=== PATIENT | female | born 1995 | race Caucasian/White ===

== ENCOUNTER 2020-11-06 01:26 | Inpatient (IN) | payer BC ==
[2020-11-06] MEDS ORDERED: Lidocaine 1% 50 ML MDV INJECT PRN (01:50)
[2020-11-06] MEDS ORDERED: Sodium Chloride 0.9% 10 ML Syringe FLUSH PRN (01:50)
[2020-11-06] MEDS ORDERED: Ampicillin 2 GM in Sodium Chloride 0.9% 100 ML IV ONE (01:50)
[2020-11-06] MEDS ORDERED: Tranexamic Acid 1,000 MG in Sodium Chloride 0.9% 100 ML IV PRN (01:50)
[2020-11-06] MEDS ORDERED: Sodium Chloride 0.9% 10 ML SDV IV PRN (01:50)
[2020-11-06] MEDS ORDERED: Sodium Chloride 0.9% 2.5 ML Syringe FLUSH PRN (01:50)
[2020-11-06] MEDS ORDERED: Water For Irrigation,Sterile 1,000 ML Container IRR PRN (01:50)
[2020-11-06] MEDS ORDERED: Carboprost Tromethamine 250 MCG/1 ML Amp IM PRN (01:50)
[2020-11-06] MEDS ORDERED: Misoprostol 200 MCG Tab PO PRN (01:50)
[2020-11-06] MEDS ORDERED: Nalbuphine 10 MG/1 ML Vial IVPUSH PRN (01:50)
[2020-11-06] MEDS ORDERED: Methylergonovine 0.2 MG/1 ML Amp IM PRN (01:50)
[2020-11-06] MEDS ORDERED: Butorphanol 1 MG/ML SDV IVPUSH PRN (01:50)
[2020-11-06] MEDS ORDERED: Lactated Ringers 1,000 ML IV SCH (02:00)
[2020-11-06] MEDS ORDERED: Oxytocin/0.9 % Sodium Chloride 30 UNIT/500 ML BAG IV SCH (02:00)
[2020-11-06] MEDS ORDERED: Ibuprofen 400 MG Tab PO PRN (04:29)
[2020-11-06] MEDS ORDERED: Benzocaine/Menthol 20%-0.5% Spray 78 GM Cannister TOP PRN (04:29)
[2020-11-06] MEDS ORDERED: oxyCODONE 5 MG Tab PO PRN (04:29)
[2020-11-06] MEDS ORDERED: Acetaminophen 500 MG Tab PO PRN ×2 (04:29)
[2020-11-06] MEDS ORDERED: Witch Hazel Medicated Pads 40/Jar TOP PRN (04:29)
[2020-11-06] MEDS ORDERED: Bisacodyl 10 MG Supp RECTAL PRN (04:29)
[2020-11-06] MEDS ORDERED: Lanolin 100% Cream 7 GM Tube TOP PRN (04:29)
--- NOTE | 2020-11-06 04:36 | PCM.OPNOTE ---
- General Post-Op/Procedure Note Date of Surgery/Procedure: 11/06/20 Operative Procedure(s): /1st MLL repaired Findings: Viable female APGARs 8, 9 weight 3320 gm. Spontaneous delivery intact placenta with 3V cord Pre Op Diagnosis: 37/4 week IUP. Active labor/SROM. GBBS + Post-Op Diagnosis: Same Anesthesia Technique: Local Primary Surgeon: Naz Lizama EBL in mLs: 250 Complications: none known Condition: Good Free Text/Narrative:: Dictation [id number]
[2020-11-06] MEDS: Ibuprofen 800 MG Tab PO PRN ×2 (05:05→18:50)
[2020-11-06] MEDS: Docusate Sodium 100 MG Cap PO PRN (05:06)
--- NOTE | 2020-11-06 06:17 | OR ---
SURGEON: Naz Lizama M.D. DATE OF PROCEDURE: 11/06/2020 PREOPERATIVE DIAGNOSES: 1. Thirty-seven and 4-week intrauterine . 2. Active labor, spontaneous rupture of membranes. 3. Group beta streptococcus positive. POSTOPERATIVE DIAGNOSES: 1. Thirty-seven and 4-week intrauterine . 2. Active labor, spontaneous rupture of membranes. 3. Group beta streptococcus positive. PROCEDURE: Spontaneous vaginal delivery, first-degree midline laceration repaired. ANESTHESIA: Local. COMPLICATIONS: None known. FINDINGS: Viable female, score of 8 at 1 minute, 9 at 5 minutes. Weight of 3320 g. Spontaneous delivery, intact placenta, 3-vessel cord. DISPOSITION: to nursery, Mom in LDRP. 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 and leakage of fluid since approximately 6:30 a.m. On initial examination, she was found to be 4 cm, 80% effaced, minus 2 station. Therefore, she was admitted. Routine labs were drawn. IV hydration was initiated. COVID was negative. The patient continued to progress over the next 2 hours to complete, 100% effaced, +1 station, feeling the urge to push. Category 1 heart tones did receive a dose of ampicillin prophylaxis for group beta streptococcus positive status. The patient began pushing efforts, pushed readily over the next approximately an hour to a +3 station. I was called for delivery. Upon my arrival, patient was placed in modified dorsal lithotomy position, was prepped and draped in the usual aseptic manner. Continued with pushing efforts, was able to push and deliver 's head atraumatically spontaneously, followed by anterior shoulder, posterior shoulder, and remainder of the body without difficulty. The infant's oropharynx and nares were bulb suctioned. was handed off to her mother with attending nursing staff at her side. After a delay cord was clamped x2 and cut. Cord arterial, cord venous, cord blood sampling obtained. Light pressure was applied while the placenta was delivered spontaneously intact. Vigorous fundal uterine massage was then applied with 30 units of Pitocin delivered in 500 mL of IV fluid. Upon inspection of cervix, vaginal sidewall, and perineum, there was found to be a first-degree midline laceration along the perineum. This was repaired using 3-0 Vicryl in the usual fashion after prepping the region with approximately 6 mL of 1% lidocaine. There was also superficial right periurethral laceration, that region was prepped with 1% lidocaine and repaired using simple [id number] suture. Hemostasis appeared evident. The sponge, instrument, needle count was correct. The patient remained in LDRP, infant to nursery. GANESH / ADRIÁN /[id number]
--- NOTE | 2020-11-07 11:42 | PCM.PNPP ---
- General Info Date of Service: 11/07/20 Functional Status: Reports: Pain Controlled, Tolerating Diet, Ambulating, Urinating - Review of Systems General: Denies: Fever, Weakness, Fatigue Pulmonary: Denies: Shortness of Breath Cardiovascular: Denies: Chest Pain, Palpitations, Lightheadedness Gastrointestinal: Denies: Abdominal Pain, Nausea, Vomiting Genitourinary: Denies: Flank Pain Musculoskeletal: Reports: No Symptoms Skin: Reports: No Symptoms Neurological: Reports: No Symptoms Psychiatric: Reports: No Symptoms - General Info Date of Service: 11/07/20 - Patient Data Vital Signs - Most Recent: Last Vital Signs Temp 36.6 C 11/07/20 08:10 Pulse 84 11/07/20 08:10 Resp 15 11/07/20 08:10 BP 119/77 11/07/20 08:10 Pulse Ox 98 11/07/20 08:10 Weight - Most Recent: 87.997 kg I&O - Last 24 Hours: Intake & Output 11/06/20 11/07/20 11/07/20 22:59 06:59 14:59 Intake Total 2 Balance 2 Lab Results - Last 24 Hours: Laboratory Results - last 24 hr 11/06/20 11/07/20 Range/Units 04:50 05:46 Hgb 12.6 (12.0-16.0) g/dL Hct 37.8 (36.0-46.0) % Screen NEGATIVE (NEGATIVE) RhIG Candidate? YES Rhogam Indicated YES, BABY RH POS H Med Orders - Current: Current Medications Acetaminophen (Tylenol Extra Strength) 500 mg PO Q4H PRN PRN Reason: Pain Acetaminophen (Tylenol Extra Strength) 1,000 mg PO Q4H PRN PRN Reason: Pain Last Admin: 11/06/20 05:05 Dose: 1,000 mg Documented by: Benzocaine/Menthol (Dermoplast Pain Relief 20%-0.5% [place]) 78 gm TOP ASDIRECTED PRN PRN Reason: Perineal Comfort Measure Last Admin: 11/06/20 05:07 Dose: 1 canister Documented by: Bisacodyl (Dulcolax) 10 mg RECTAL ONETIME PRN PRN Reason: Constipation Butorphanol Tartrate (Stadol) 1 mg IVPUSH Q1H PRN PRN Reason: Pain Carboprost Tromethamine (Hemabate Ds) 250 mcg IM ASDIRECTED PRN PRN Reason: Post Hemorrhage Docusate Sodium (Colace) 100 mg PO BID PRN PRN Reason: Constipation Last Admin: 11/06/20 05:06 Dose: 100 mg Documented by: Emollient Ointment (Lansinoh Hpa) 0 gm TOP ASDIRECTED PRN PRN Reason: Sore Nipples Last Admin: 11/06/20 05:06 Dose: 7 gm Documented by: Oxytocin/Sodium Chloride (Oxytocin 30 Unit/500 Ml-Ns) 30 unit in 500 mls @ 999 mls/hr IV TITRATE [facility] Last Admin: 11/06/20 04:01 Dose: 999 mls/hr Documented by: Tranexamic Acid 1,000 mg/ (Sodium Chloride) 110 mls @ 660 mls/hr IV ONETIME PRN PRN Reason: Bleeding Lactated Ringer's (Ringers, Lactated) 1,000 mls @ 150 mls/hr IV ASDIRECTED [facility] Last Admin: 11/06/20 02:24 Dose: 150 mls/hr Documented by: Ibuprofen (Motrin) 400 mg PO Q4H PRN PRN Reason: Pain Ibuprofen (Motrin) 800 mg PO Q6H PRN PRN Reason: Pain Last Admin: 11/06/20 18:50 Dose: 800 mg Documented by: Lidocaine HCl (Xylocaine 1%) 50 ml INJECT ONETIME PRN PRN Reason: Laceration repair Last Admin: 11/06/20 04:16 Dose: 50 ml Documented by: Methylergonovine Maleate (Methergine) 0.2 mg IM ASDIRECTED PRN PRN Reason: Post Hemorrhage Misoprostol (Cytotec) 200 mcg PO ONETIME PRN PRN Reason: Post Hemorrhage Nalbuphine HCl (Nubain) 10 mg IVPUSH Q1H PRN PRN Reason: Pain (severe 7-10) Oxycodone HCl (Oxycodone) 5 mg PO Q2H PRN PRN Reason: Pain Sodium Chloride (Saline Flush) 10 ml FLUSH ASDIRECTED PRN PRN Reason: Keep Vein Open Sodium Chloride (Saline Flush) 2.5 ml FLUSH ASDIRECTED PRN PRN Reason: Keep Vein Open Sodium Chloride (Normal Saline) 10 ml IV ASDIRECTED PRN PRN Reason: IV Use Sterile Water (Sterile Water For Irrigation) 1,000 ml IRR ASDIRECTED PRN PRN Reason: delivery Chris Liu (Tucks) 1 pad TOP ASDIRECTED PRN PRN Reason: comfort care Last Admin: 11/06/20 05:06 Dose: 1 tub Documented by: Discontinued Medications Ampicillin Sodium 2 gm/ Sodium (Chloride) 100 mls @ 200 mls/hr IV ONETIME ONE Stop: 11/06/20 02:19 Last Admin: 11/06/20 02:23 Dose: 200 mls/hr Documented by: - Interaction Support Person: - Recovery Exam Fundal Tone: Firm Fundal Level: At Umbilicus Fundal Placement: Midline Lochia Amount: Scant Lochia Color: Rubra/Red Perineum Description: Other (see below) Other Perinuem Description: 1st degree laceration repaired Bladder Status: Voiding - Exam General: Alert, Oriented Lungs: Normal Respiratory Effort Cardiovascular: Regular Rate, Regular Rhythm GI/Abdominal Exam: Normal Bowel Sounds, Soft Extremities: Pedal Edema (trace). No: [place]'s Sign Skin: Warm, Dry, Intact Neurological: No New Focal Deficit Psy/Mental Status: Alert, Normal Affect, Normal Mood - Problem List & Annotations (1) Vaginal delivery SNOMED Code(s): 081869849 Code(s): O80 - ENCOUNTER FOR FULL-TERM UNCOMPLICATED DELIVERY Status: Acute Current Visit: Yes - Problem List Review Problem List Initiated/Reviewed/Updated: Yes - Assessment Assessment:: PPD 1 status post /1st MLL repaired - Plan Plan:: Continue cares. Doing well overall, will be able to be discharge once 48 hours post delivery due to not receiving complete antibiotic prophylaxis for GBBS + status.
--- NOTE | 2020-11-08 08:34 | PCM.PNPP ---
- General Info Date of Service: 11/08/20 Functional Status: Reports: Pain Controlled, Tolerating Diet, Ambulating, Urinating - Review of Systems General: Reports: No Symptoms HEENT: Reports: No Symptoms Pulmonary: Reports: No Symptoms Cardiovascular: Reports: No Symptoms Gastrointestinal: Reports: No Symptoms Genitourinary: Reports: No Symptoms Musculoskeletal: Reports: No Symptoms Skin: Reports: No Symptoms Neurological: Reports: No Symptoms Psychiatric: Reports: No Symptoms - Patient Data Vital Signs - Most Recent: Last Vital Signs Temp 36.6 C 11/08/20 07:52 Pulse 79 11/08/20 08:11 Resp 16 11/08/20 08:11 BP 119/68 11/08/20 08:11 Pulse Ox 96 11/08/20 08:11 Weight - Most Recent: 87.997 kg Med Orders - Current: Current Medications Acetaminophen (Tylenol Extra Strength) 500 mg PO Q4H PRN PRN Reason: Pain Acetaminophen (Tylenol Extra Strength) 1,000 mg PO Q4H PRN PRN Reason: Pain Last Admin: 11/06/20 05:05 Dose: 1,000 mg Documented by: Benzocaine/Menthol (Dermoplast Pain Relief 20%-0.5% [place]) 78 gm TOP ASDIRECTED PRN PRN Reason: Perineal Comfort Measure Last Admin: 11/06/20 05:07 Dose: 1 canister Documented by: Bisacodyl (Dulcolax) 10 mg RECTAL ONETIME PRN PRN Reason: Constipation Butorphanol Tartrate (Stadol) 1 mg IVPUSH Q1H PRN PRN Reason: Pain Carboprost Tromethamine (Hemabate Ds) 250 mcg IM ASDIRECTED PRN PRN Reason: Post Hemorrhage Docusate Sodium (Colace) 100 mg PO BID PRN PRN Reason: Constipation Last Admin: 11/06/20 05:06 Dose: 100 mg Documented by: Emollient Ointment (Lansinoh Hpa) 0 gm TOP ASDIRECTED PRN PRN Reason: Sore Nipples Last Admin: 11/06/20 05:06 Dose: 7 gm Documented by: Oxytocin/Sodium Chloride (Oxytocin 30 Unit/500 Ml-Ns) 30 unit in 500 mls @ 999 mls/hr IV TITRATE [facility] Last Admin: 11/06/20 04:01 Dose: 999 mls/hr Documented by: Tranexamic Acid 1,000 mg/ (Sodium Chloride) 110 mls @ 660 mls/hr IV ONETIME PRN PRN Reason: Bleeding Lactated Ringer's (Ringers, Lactated) 1,000 mls @ 150 mls/hr IV ASDIRECTED [facility] Last Admin: 11/06/20 02:24 Dose: 150 mls/hr Documented by: Ibuprofen (Motrin) 400 mg PO Q4H PRN PRN Reason: Pain Ibuprofen (Motrin) 800 mg PO Q6H PRN PRN Reason: Pain Last Admin: 11/06/20 18:50 Dose: 800 mg Documented by: Lidocaine HCl (Xylocaine 1%) 50 ml INJECT ONETIME PRN PRN Reason: Laceration repair Last Admin: 11/06/20 04:16 Dose: 50 ml Documented by: Methylergonovine Maleate (Methergine) 0.2 mg IM ASDIRECTED PRN PRN Reason: Post Hemorrhage Misoprostol (Cytotec) 200 mcg PO ONETIME PRN PRN Reason: Post Hemorrhage Nalbuphine HCl (Nubain) 10 mg IVPUSH Q1H PRN PRN Reason: Pain (severe 7-10) Oxycodone HCl (Oxycodone) 5 mg PO Q2H PRN PRN Reason: Pain Sodium Chloride (Saline Flush) 10 ml FLUSH ASDIRECTED PRN PRN Reason: Keep Vein Open Sodium Chloride (Saline Flush) 2.5 ml FLUSH ASDIRECTED PRN PRN Reason: Keep Vein Open Sodium Chloride (Normal Saline) 10 ml IV ASDIRECTED PRN PRN Reason: IV Use Sterile Water (Sterile Water For Irrigation) 1,000 ml IRR ASDIRECTED PRN PRN Reason: delivery Chris Liu (Tucks) 1 pad TOP ASDIRECTED PRN PRN Reason: comfort care Last Admin: 11/06/20 05:06 Dose: 1 tub Documented by: Discontinued Medications Ampicillin Sodium 2 gm/ Sodium (Chloride) 100 mls @ 200 mls/hr IV ONETIME ONE Stop: 11/06/20 02:19 Last Admin: 11/06/20 02:23 Dose: 200 mls/hr Documented by: - Infant Interaction Infant Disposition, : [place] in Room with Family Infant Interaction: Holding Infant Infant Feeding: Attempted ; Nursed Fair/Poor Support Person: - Recovery Exam Fundal Tone: Firm Fundal Level: At Umbilicus Fundal Placement: Midline Lochia Amount: Scant Lochia Color: Rubra/Red Perineum Description: Other (see below) Other Perinuem Description: 1st degree laceration repaired Bladder Status: Voiding - Exam General: Alert, Oriented Neck: Supple Lungs: Normal Respiratory Effort GI/Abdominal Exam: Soft, Non-Tender, No Organomegaly, No Abnormal Bruit, No Mass Extremities: Non-Tender, No Pedal Edema Skin: Warm Neurological: No New Focal Deficit Psy/Mental Status: Alert, Normal Affect, Normal Mood - Problem List & Annotations (1) Vaginal delivery SNOMED Code(s): 208305710 Code(s): O80 - ENCOUNTER FOR FULL-TERM UNCOMPLICATED DELIVERY Status: Acute Current Visit: Yes - Problem List Review Problem List Initiated/Reviewed/Updated: Yes - My Orders Last 24 Hours: My Active Orders 11/08/20 08:31 Ready for Discharge [RC] PER UNIT ROUTINE - Assessment Assessment:: PPD 2 status post /1st MLL repaired Due to rapid labor, incomplete GBS prophylasix - Plan Plan:: Greater than 48 hour from . Dismiss to home. Discharge instructions given.
[2020-11-08] MEDS: Docusate Sodium 100 MG Cap PO PRN (09:40)
== END 2020-11-08 10:15 | disposition home or self-care (01) | DRG 560 ==
LOC: MW.OBCHECK 01:26 → MW.OB 01:27 → MW.OBCHECK 01:51 → OBSVTOIN 04:00 → MW.OB 05:58
PROVIDERS: ADMIT Obstetrics & Gynecology; ATTEND Obstetrics & Gynecology
PROC: 10E0XZZ Delivery of Products of Conception, External Approach (ICD-10-PCS; principal; 2020-11-06)
PROC: 0HQ9XZZ Repair Perineum Skin, External Approach (ICD-10-PCS; 2020-11-06)
DX: O99.824 Streptococcus B carrier state complicating childbirth (principal); Z3A.37 37 weeks gestation of pregnancy; Z37.0 Single live birth; O77.0 Labor and delivery complicated by meconium in amniotic fluid; Z20.822 Contact with and (suspected) exposure to COVID-19
CPT/HCPCS: 36415; 59025; 59409; 82803; 85014; 85018; 85027; 85460; 86592; 86850; 86900; 86901; A9270-GY; J0290; J2001; J2590; J2792; J7120; U0002

== ENCOUNTER 2023-11-23 12:58 | Emergency (ER) | payer BC ==
[2023-11-23 13:41] LABS: BASOPHILS ABSOLUTE AUTO 0.02 K/uL (0.00-0.20); BASOPHILS PERCENT AUTO 0.3 % (0.0-1.0); EOSINOPHILS ABSOLUTE AUTO 0.06 K/uL (0.00-0.45); EOSINOPHILS PERCENT AUTO 0.8 % (0.0-6.0); HEMATOCRIT 34.2 % (37.0-47.0); HEMOGLOBIN 11.8 g/dL (12.0-16.0); IMMATURE GRAN ABSOLUTE AUTO 0.07 K/uL (0.00-0.05); IMMATURE GRAN PERCENT AUTO 0.9 % (0.0-0.4); LYMPHOCYTES ABSOLUTE AUTO 1.57 K/uL (1.00-4.80); LYMPHOCYTES PERCENT AUTO 20.1 % (24.0-44.0); MEAN CORPUSCULAR HEMOGLOBIN 29.9 pg (28.0-32.0); MEAN CORPUSCULAR HGB CONC 34.5 g/dL (32.0-36.0); MEAN CORPUSCULAR VOLUME 86.8 fL (83.0-99.0); MEAN PLATELET VOLUME 11.2 fL (9.4-12.3); MONOCYTES ABSOLUTE AUTO 0.35 K/uL (0.00-0.80); MONOCYTES PERCENT AUTO 4.5 % (0.0-8.0); NEUTROPHILS ABSOLUTE AUTO 5.74 K/uL (1.80-7.70); NEUTROPHILS PERCENT AUTO 73.4 % (41.0-71.0); PLATELET COUNT,PLT 214 K/uL (150-400); RED BLOOD CELL COUNT 3.94 M/uL (4.10-5.30); WHITE BLOOD CELL COUNT,WBC 7.81 K/uL (3.9-11.3)
[2023-11-23] MEDS: Iopamidol 755 MG/ML 500 ML Multipack Bottle IVPUSH STA (14:46)
[2023-11-23 15:15] LABS: A/G RATIO 0.8 (0.9-1.6); ALBUMIN 2.5 g/dL (3.4-5.0); CALCIUM 8.7 mg/dL (8.5-10.1); CARBON DIOXIDE,CO2 21.7 mmol/L (21.0-32.0); CREATININE 0.6 mg/dL (0.6-1.0); EST CRCL DRUG DOSING (CG) 143.28 mL/min; POTASSIUM,K 3.8 mmol/L (3.5-5.1); PROTEIN TOTAL,TP 5.7 g/dL (6.4-8.2)
== END 2023-11-23 15:45 | disposition home or self-care (01) ==
LOC: MW.ED 12:58
DX: R51.9 Headache, unspecified (principal); Z75.8 Other problems related to medical facilities and other health care; Z79.899 Other long term (current) drug therapy
CPT/HCPCS: 36415; 70470; 80053; 85025; 99284; Q9967

== ENCOUNTER 2023-12-03 07:14 | Inpatient (IN) | payer BC ==
[2023-12-03] MEDS ORDERED: Butorphanol 2 MG/ML SDV IVPUSH PRN (08:12)
[2023-12-03] MEDS ORDERED: Ondansetron 4 MG/2 ML SDV IVPUSH PRN (08:12)
[2023-12-03] MEDS ORDERED: Misoprostol 200 MCG Tab PO PRN (08:12)
[2023-12-03] MEDS ORDERED: Sodium Chloride 0.9% 20 ML SDV IV PRN (08:12)
[2023-12-03] MEDS ORDERED: Methylergonovine 0.2 MG/1 ML Amp IM PRN (08:12)
[2023-12-03] MEDS ORDERED: Tranexamic Acid IN NACL,ISO-OS 1,000 MG in Premix Bag 1 BAG IV PRN (08:12)
[2023-12-03] MEDS ORDERED: Water For Irrigation,Sterile 1,000 ML Container IRR PRN (08:12)
[2023-12-03] MEDS ORDERED: Carboprost Tromethamine 250 MCG/1 mL Vial IM PRN (08:12)
[2023-12-03] MEDS ORDERED: Lidocaine 1% 50 ML MDV INJECT PRN (08:12)
[2023-12-03] MEDS ORDERED: Sodium Chloride 0.9% 10 ML Syringe FLUSH PRN (08:12)
[2023-12-03] MEDS ORDERED: Sodium Chloride 0.9% 2.5 ML Syringe FLUSH PRN (08:12)
[2023-12-03 08:55] LABS: HEMATOCRIT 34.9 % (37.0-47.0); HEMOGLOBIN 12.2 g/dL (12.0-16.0); MEAN CORPUSCULAR HEMOGLOBIN 30.4 pg (28.0-32.0); MEAN PLATELET VOLUME 11.3 fL (9.4-12.3); PLATELET COUNT,PLT 212 K/uL (150-400); RED BLOOD CELL COUNT 4.01 M/uL (4.10-5.30); WHITE BLOOD CELL COUNT,WBC 8.64 K/uL (3.9-11.3)
[2023-12-03] MEDS: Lactated Ringers 1,000 ML IV SCH (09:20)
[2023-12-03] MEDS ORDERED: fentaNYL 100 MCG/2 ML SDV ONE (09:41)
[2023-12-03] MEDS ORDERED: Phenylephrine HCl 0.5 MG/5 ML AMP ONE (09:46)
[2023-12-03] MEDS ORDERED: Ropivacaine 0.2% PF 2 MG/ML 20 ML SDV ONE (09:46)
[2023-12-03] MEDS ORDERED: dexmedeTOMIDine HCl 200 MCG/2 ML SDV ONE (09:46)
[2023-12-03] MEDS ORDERED: Ropivacaine HCl/PF 200 ML ONE (09:47)
[2023-12-03] MEDS ORDERED: Bupivacaine 0.25% 10 ML SDV ONE (09:47)
[2023-12-03] MEDS ORDERED: ePHEDrine 50 MG/ML SDV IVPUSH PRN ×2 (10:24)
[2023-12-03] MEDS ORDERED: Phenylephrine HCl 0.5 MG/5 ML AMP IVPUSH PRN (10:24)
[2023-12-03] MEDS: Oxytocin/0.9 % Sodium Chloride 30 UNIT/500 ML BAG IV SCH (10:29)
[2023-12-03] MEDS ORDERED: Ropivacaine HCl/PF 400 MG in Premix Bag 1 BAG EPIDUR SCH (10:30)
[2023-12-03] MEDS ORDERED: Docusate Sodium 100 MG Cap PO PRN (11:02)
[2023-12-03] MEDS ORDERED: Ibuprofen 800 MG Tab PO PRN (11:02)
[2023-12-03] MEDS ORDERED: Lanolin 100% Cream 7 GM Tube TOP PRN (11:02)
[2023-12-03 11:14] LABS: PH,UMBILICAL ARTERIAL 7.144 (7.18-7.38); PH,UMBILICAL VENOUS 7.254 (7.25-7.45)
[2023-12-03] MEDS: Benzocaine/Menthol 20%-0.5% Spray 78 GM Cannister TOP PRN (13:30)
[2023-12-03] MEDS: Witch Hazel Medicated Pads 40/Jar TOP PRN (13:30)
[2023-12-04] MEDS: Acetaminophen 500 MG Tab PO PRN (04:29)
[2023-12-04 06:50] LABS: HEMATOCRIT 32.1 % (37.0-47.0); HEMOGLOBIN 11.1 g/dL (12.0-16.0)
== END 2023-12-04 13:16 | disposition home or self-care (01) | DRG 560 ==
LOC: MW.OBCHECK 07:14 → MW.OB 10:20 → OBSVTOIN 10:36 → MW.OBCHECK 10:36 → MW.OB 10:36
PROVIDERS: ADMIT Obstetrics & Gynecology; ATTEND Obstetrics & Gynecology
PROC: 10E0XZZ Delivery of Products of Conception, External Approach (ICD-10-PCS; principal; 2023-12-03)
PROC: 3E0R3BZ Introduction of Anesthetic Agent into Spinal Canal, Percutaneous Approach (ICD-10-PCS; 2023-12-03)
PROC: 00HU33Z Insertion of Infusion Device into Spinal Canal, Percutaneous Approach (ICD-10-PCS; 2023-12-03)
PROC: 3E0334Z Introduction of Serum, Toxoid and Vaccine into Peripheral Vein, Percutaneous Approach (ICD-10-PCS; 2023-12-03)
DX: O48.0 Post-term pregnancy (principal); Z37.0 Single live birth; O42.02 Full-term premature rupture of membranes, onset of labor within 24 hours of rupture; O69.81X0 Labor and delivery complicated by cord around neck, without compression, not applicable or unspecified; O26.893 Other specified pregnancy related conditions, third trimester; Z3A.40 40 weeks gestation of pregnancy; Z67.11 Type A blood, Rh negative
CPT/HCPCS: 36415; 59025; 59409; 82803; 85014; 85018; 85027; 85460; 86592; 86850; 86900; 86901; A9270-GY; J2371; J2590; J2790; J2795; J3010; J3490; J7120